=== PATIENT | female | born 1950 | race Caucasian/White ===

== ENCOUNTER 2016-04-24 11:29 | Emergency (ER) | payer OTHER ==
[~2016-04-24] VITALS: Ht 157.5 cm; Wt 59.0 kg
[2016-04-24 11:32] VITALS: BP 149/91
[2016-04-24] MEDS ORDERED: PANTOPRAZOLE SO40 M1 PO (12:00)
[2016-04-24] MEDS ORDERED: FAMOTIDINE40 M1 PO (12:00)
[2016-04-24] MEDS ORDERED: ATORVASTATIN CA10 M1 PO (12:00)
[2016-04-24] MEDS ORDERED: ACTONEL150 M1 PO (12:01)
[2016-04-24] MEDS ORDERED: KEFLEX500 M1 PO (12:05)
[2016-04-24] MEDS ORDERED: CLOTRIMAZOLE15 GM TOP (12:05)
--- NOTE | 2016-04-24 12:06 | ED ANKLE/FOOT INJURY COMPLAINT ---
History of Present Illness General Chief Complaint: Lower Extremity Problems Stated Complaint: ? INFECTION TO RT TOES Source: patient Exam Limitations: no limitations Vital Signs & Intake/Output Vital Signs & Intake/Output Vital Signs Date Time Temp Pulse Resp B/P Pulse O2 O2 Flow FiO2 Ox Delivery Rate 04/24 1132 97.1 99 18 149/91 100 Room Air Room Air Allergies Coded Allergies: No Known Allergies (04/24/16) Reconcile Medications Atorvastatin Calcium 10 MG TABLET 1 TAB PO QPM CHOLESTEROL (Reported) Cephalexin (Keflex) 500 MG CAPSULE 1 CAP PO TID cellulitis Clotrimazole 1 % CREAM..G. 1 KIM TOP QAMPM tinea pedia apply to affected area(s) Famotidine 40 MG TABLET 1 TAB PO DAILY GI (Reported) Pantoprazole Sodium 40 MG TABLET.DR 1 TAB PO DAILY GI (Reported) Risedronate Sodium (Actonel) 150 MG TABLET 1 TAB PO Q30D BONE (Reported) on the same date with a full glass of water at least 30 minutes before first food or drink of the day; remain in an upright posi Triage Note: TRIAGE: 65 Y/O FEMALE PRESENTS C/O 5/10 RIGHT TOE PAIN X 2 WEEKS. 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 AFEBRILE IN TRIAGE. UNABLE TO VISUALIZE IN TRIAGE. Triage Nurses Notes Reviewed? yes Occurred: last week Duration: week(s): (2) Timing: no prior history Severity: moderate Severity Numbers: 5 Pain/Injury Location: Right: 1st toe, 2nd toe, 4th toe. Method of Injury: unknown No Modifying Factors: none HPI: Patient is a 65-year-old female presenting to the emergency department with chief complaint of pain, itchiness and redness to the right ptosis been going on for the past 2 weeks. She reports that it's really itchy at times. Denies putting anything on it to help with her symptoms. She saw her ordnance technician 2 days ago and they were unsure exactly what it was. Denies putting her on any medication. Patient denies any nausea vomiting fevers or chills chest pain or shortness of breath. No calf pain. She does report that she is pretty active and works out and plays tennis.symptoms currently moderate.. (LORENZA CARD,DOREEN) Past History Travel History Traveled to [place] past 21 day No Medical History Any Pertinent Medical History? see below for history Neurological: RSD RIGHT ARM Cardiovascular: hyperlipidemia Musculoskeletal: osteoporosis Surgical History Surgical History: non-contributory Psychosocial History What is your primary language Marshallese Tobacco Use: Never used ETOH Use: occasional use Illicit Drug Use: denies illicit drug use Family History Hx Contributory? No (DOREEN RAMOS) Review of Systems Review of Systems Constitutional: Reports: no symptoms. Comments Review of systems: See HPI, All other systems negative. Constitutional, no chills fever or weight loss HEENT: No visual changes no sore throat no congestion Cardiovascular: No chest pain ,palpitation , orthopnea or ankle swelling Skin, no jaundice Respiratory: No dyspnea cough sputum or hemoptysis GI: No nausea no vomiting : No dysuria No hematuria Muscle skeletal: no back pain, no neck pain, Neurologic: No numbness no confusion no regan Psych: No stress anxiety Immunology: No splenectomy or history of AIDS (DOREEN RAMOS) Physical Exam Physical Exam General Appearance: well developed/nourished, no apparent distress, alert, awake , comfortable Leg/Knee/Thigh Left: normal range of motion, normal inspection Comments: Well-developed well-nourished person in no acute distress HEENT: Pupils equally round and reactive to light and accommodation. Nose is atraumatic. Neck: Normal inspection Back: Nontender Cardiovascular: normal JVP Respiratory: No respiratory distress. Extremity: No edema, no calf tenderness to palpation, pedal pulses are 2+ bilaterally. Full range of motion of all toes on the right foot, full range of motion of right foot without difficulty or pain. No pain to palpation of the right ankle. No calf pain to palpation bilaterally. Feet are warm to palpation bilaterally. Neuro: Alert oriented x3, motor sensory normal in the lower extremities bilaterally. Skin: Moderate erythema noted over the plantar surface of the right great toe, second toe and the fourth toe. Mild tenderness to palpation over the right fourth toe. Capillary refills intact in the right lower extremity. Erythema is blanchable. Psych: Mood and affect is normal, memory and judgment is normal. (DOREEN RAMOS) Progress Differential Diagnosis: cellulitis, septic arthritis, gout, fracture, dislocation, sprain, tinea infection, vascular insufficiency Plan of Care: 04/24/2016 12:16:18 PM patient is neurovascularly intact in the lower extremities. Mild discomfort to palpation over the right fourth toe. Full range of motion. Likely tinea pedis as patient reports extensive itching in the area. There may be some superimposed cellulitis on the right fourth toe, as her skin is dry and cracking. Patient was treated prophylactically with oral antibiotics and given topical antifungal ointment. She'll follow-up with a ordnance technician this week or return for worsening symptoms. (DOREEN RAMOS) Departure Departure Time of Disposition: 1202 Disposition: HOME OR SELF CARE Condition: Stable Clinical Impression Primary Impression: Tinea pedis Qualifiers: Laterality: right Qualified Code: B35.3 - Tinea pedis Secondary Impressions: Cellulitis Qualifiers: Site of cellulitis: extremity Site of cellulitis of extremity: lower extremity Laterality: right Qualified Code: L03.115 - Cellulitis of right lower limb Referrals: PAULY HALL,ALFA HAWTHORNE (PCP/Family) Additional Instructions: Follow-up with your ordnance technician call to make an appointment. Use topical ointment to help with athlete's foot. Take oral antibiotics to help with skin infection. Return for worsening symptoms or concerns. Keep feet clean, dry. Departure Forms: Customer Survey General Discharge Information Prescriptions: Current Visit Scripts Cephalexin (Keflex) 1 CAP PO TID #21 CAP Clotrimazole 1 KIM TOP QAMPM #30 GM apply to affected area(s) (DOREEN RAMOS) PA/SENIOR COMMUNICATIONS ENGINEER Co-Sign Statement Statement: ED Attending supervision documentation- x I saw and evaluated the patient. I have also reviewed all the pertinent lab results and diagnostic results. I agree with the findings and the plan of care as documented in the PA's/SENIOR COMMUNICATIONS ENGINEER's documentation. [] I have reviewed the ED Record and agree with the PA's/SENIOR COMMUNICATIONS ENGINEER's documentation. [] Additions or exceptions (if any) to the PAs/SENIOR COMMUNICATIONS ENGINEER's note and plan are summarized below: [] (CONSUELO HALL,SHAGUFTA)
== END 2016-04-24 12:24 ==
LOC: ERH 11:29
DX: B35.3 Tinea pedis (principal); L03.031 Cellulitis of right toe